=== PATIENT | female | born 1975 ===

== ENCOUNTER 2018-02-09 14:00 | Outpatient (CLI) | payer SELFPAY | END 2018-02-09 14:01 | disposition EMS.NT | LOC: EMS 14:00 | PROVIDERS: ATTEND Surgery | DX: M79.644 Pain in right finger(s) (principal); V53.5XXA Driver of pick-up truck or van injured in collision with car, pick-up truck or van in traffic accident, initial encounter; Y92.413 State road as the place of occurrence of the external cause ==